=== PATIENT | male | born 1950 | race Caucasian/White ===

== ENCOUNTER 2022-12-21 16:20 | Emergency (ER) | payer OTHER, SELFPAY ==
--- NOTE | 2022-12-21 16:25 | PC.NURSE ---
pt called from waiting area within 5 min of arrival and is in bathroom.
[2022-12-21 16:33] VITALS: BP 146/72; PULSE 80; RESP 16; TEMP 36; O2SAT 98; BMI 36.2
--- NOTE | 2022-12-21 16:37 | DI.RAD.S_ITS ---
PROCEDURE: XR CHEST 1V INDICATIONS: chest pain TECHNIQUE: One view of the chest was acquired. COMPARISON: None. FINDINGS: Surgical changes and devices: None. Lungs and pleura: Lungs are clear. No pleural effusions or pneumothorax. Mediastinum: Mediastinal contours appear normal. Heart size is normal. Bones and chest wall: No suspicious bony lesions. Overlying soft tissues appear unremarkable. IMPRESSION: Portable chest within normal limits for age. Dictated by: Rosey Phoenix M.D. on 12/21/2022 at 17:07 Approved by: Rosey Phoenix M.D. on 12/21/2022 at 17:07
[2022-12-21 17:27] LABS: Add Manual Diff / Slide Review NO; Basophils Absolute Auto 100 /uL (0-100); Basophils Percent Auto 1.3 % (0-2); Eosinophils Absolute Auto 200 /uL (0-450); Eosinophils Percent Auto 3.5 % (2-4); Hematocrit 44.5 % (41-53); Hemoglobin 15.1 g/dL (13.5-17.5); Lymphocytes Absolute Auto 1200 /uL (1100-4500); Lymphocytes Percent Auto 20.7 % (25-40); Mean Corpuscular HGB Conc 33.9 % (30-36); Mean Corpuscular Hemoglobin 30.9 PG (26-34); Mean Corpuscular Volume 91.2 fL (80-100); Monocytes Absolute Auto 600 /uL (0-900); Monocytes Percent Auto 10.6 % (3-14); Neutrophils Absolute Auto 3800 /uL (1500-7000); Neutrophils Percent Auto 63.9 % (50-75); Platelet Count 187 X10^3/uL (150-400); Red Blood Cell Count 4.87 X10^6/uL (4.5-5.9); Red Cell Distribution Width 13.9 % (11.6-14.8); White Blood Cell Count 5.9 X10^3/uL (4.5-11.0)
[2022-12-21 17:34] LABS: Alanine Aminotransferase 39 IU/L (<50); Albumin 4.5 g/dL (3.5-5.0); Albumin Globulin Ratio 1.4 (1.0-2.8); Alkaline Phosphatase 66 U/L (38-126); Aspartate Aminotransferase 39 IU/L (17-59); Bilirubin Total 0.5 mg/dL (0.2-1.3); Blood Urea Nitrogen 13 mg/dL (9-20); Calcium 9.4 mg/dL (8.4-10.2); Carbon Dioxide 28 mmol/L (22-32); Chloride 104 mmol/L (98-107); Creatine Kinase 155 U/L (55-170); Estimated Glomerular Filt Rate > 60 mL/min (>60); Globulin 3.3 g/dL (1.7-4.1); Glucose 95 mg/dL (80-110); HEMOLYSIS 45 (0-50); Lipase 44 U/L (23-300); Potassium 4.2 mmol/L (3.4-5.1); Sodium 140 mmol/L (137-145); Total Protein 7.8 g/dL (6.3-8.2)
[2022-12-21 17:45] LABS: Troponin I < 0.012 ng/mL (0.01-0.034)
--- NOTE | 2022-12-21 18:04 | ED.CHESTPAIN ---
HPI - Chest Pain General Chief Complaint: Chest Pain Stated Complaint: Weird sensation in chest upon standing Time Seen by Provider: 12/21/22 18:02 History of Present Illness HPI narrative: 72-year-old male nonsmoker, nondrinker with history of hypertension and hyperlipidemia presents at the request of the call nurse for his insurance company. He states that he had felt great, very nonspecific about it over the past week or so and on Saturday he had bent over to adjust his vacuum cleaner assistant and upon standing felt some palpitations that resolved without any specific intervention. He denies associated symptoms such as dizziness, weakness or lightheadedness. No shortness of breath, nausea, vomiting or unexplained diaphoresis. No pain pressure or heaviness. No exertional symptoms and no exercise intolerance. He is had no change in medications or diet. He denies any recent travel, change sleep habits or other. He states he had 1 or 2 other brief episodes of palpitations only that were without obvious provocation or palliation. Related Data Allergies Allergy/AdvReac Type Severity Reaction Status Date / Time No Known Drug Allergies Allergy Verified 12/21/22 19:04 Review of Systems Review of Systems Narrative: GENERAL: Denies chills, fatigue, malaise, fever, sweats. HEENT: Denies sinus pain, ear pain, sore throat, difficulty swallowing, dizziness. RESPIRATORY: Denies dyspnea, cough, wheezing, hemoptysis, sputum. CARDIOVASCULAR: See HPI GASTROINTESTINAL: Denies nausea, vomiting, abdominal pain, diarrhea, constipation, melena. : Denies dysuria, frequency, incontinence, hematuria, urinary retention. MUSCULOSKELETAL: denies weakness, joint pain, or bony pain SKIN: Denies rash, skin lesions, or other NEUROLOGIC: Denies weakness, headache, numbness, change in speech, confusion, seizures, incoordination. PSYCHIATRIC: No concerning psychosocial issues. 12 point review of systems is negative except for those stated above Exam Narrative Exam Narrative: GENERAL: [72] year old patient appears stated age. Well-developed patient, in mild distress. HEAD: Atraumatic. Normocephalic. EYES: Pupils equal round and reactive. Extraocular motions intact. No scleral icterus. No injection or drainage. ENT: Nose without bleeding, purulent drainage. Throat without erythema, tonsillar hypertrophy or exudate. Airway patent. NECK: Trachea midline. Non tender CARDIOVASCULAR: Regular rate and rhythm without murmurs, gallops, or rubs. RESPIRATORY: Clear to auscultation. Breath sounds equal bilaterally. No wheezes, rales, or rhonchi. GASTROINTESTINAL: Abdomen soft, non-tender, nondistended. EXTREMITIES: No edema or joint tenderness. BACK: Nontender without deformity or crepitance. No flank tenderness. NEURO: AOx3. SKIN: No rash or erythema of visible areas Initial Vital Signs Initial Vital Signs: Vital Signs Temperature 96.8 F L 12/21/22 16:33 Pulse Rate 80 12/21/22 16:33 Respiratory Rate 16 12/21/22 16:33 Blood Pressure 146/72 H 12/21/22 16:33 Pulse Oximetry 98 12/21/22 16:33 Oxygen Delivery Method Room Air 12/21/22 16:33 Course Orders Ordered: ED Orders 12/21/22 16:36 EKG-12 Lead Stat 12/21/22 16:37 XR chest 1V Stat 12/21/22 17:00 Complete Blood Count AUTO DIFF Stat Comprehensive Metabolic Panel Stat D Dimer Stat Lipase Stat Magnesium Stat Troponin & CK Cardiac Panel Stat 12/21/22 18:01 PTT Partial Thromboplastin Jerry Stat Prothrombin Time INR Stat 12/21/22 18:36 EKG-12 Lead Stat 12/21/22 18:40 Troponin & CK Cardiac Panel Stat Discontinued Medications Aspirin (Aspirin 81 Mg Chew Tab) 324 mg PO NOW ONE Stop: 12/21/22 16:38 Last Admin: 12/21/22 18:48 Dose: Not Given Documented By: SPF Vital Signs Vital signs: Vital Signs - 8 hr 12/21/22 16:33 12/21/22 18:46 12/21/22 18:46 Temperature 96.8 F L Pulse Rate 80 64 Respiratory Rate 16 20 Blood Pressure 146/72 H 144/73 H Pulse Oximetry 98 98 Oxygen Delivery Method Room Air 12/21/22 19:00 12/21/22 19:00 Temperature Pulse Rate 62 Respiratory Rate 13 Blood Pressure 136/72 Pulse Oximetry 95 Oxygen Delivery Method Room Air MDM - Chest Pain Lab Data 12/21/22 17:00 12/21/22 17:00 Labs: Lab Results 12/21/22 12/21/22 12/21/22 Range/Units 17:00 17:00 17:00 WBC 5.9 (4.5-11.0) X10^3/uL RBC 4.87 (4.5-5.9) X10^6/uL Hgb 15.1 (13.5-17.5) g/dL Hct 44.5 (41-53) % MCV 91.2 (80-100) fL MCH 30.9 (26-34) PG MCHC 33.9 (30-36) % RDW 13.9 (11.6-14.8) % Plt Count 187 (150-400) X10^3/uL Neut % (Auto) 63.9 (50-75) % Lymph % (Auto) 20.7 L (25-40) % Davison % (Auto) 10.6 (3-14) % Eos % (Auto) 3.5 (2-4) % Baso % (Auto) 1.3 (0-2) % Neut # (Auto) 3800 (2352-9677) /uL Lymph # (Auto) 1200 (3052-8189) /uL Davison # (Auto) 600 (0-900) /uL Eos # (Auto) 200 (0-450) /uL Baso # (Auto) 100 (0-100) /uL PT (10.1-12.7) SECONDS INR (0.9-1.3) APTT (26-36) SECONDS D-Dimer 409 (<500) ng/ml Sodium 140 (137-145) mmol/L Potassium 4.2 (3.4-5.1) mmol/L Chloride 104 (98-107) mmol/L Carbon Dioxide 28 (22-32) mmol/L BUN 13 (9-20) mg/dL Creatinine 0.93 (0.66-1.25) mg/dL Estimated GFR > 60 (>60) mL/min BUN/Creatinine Ratio 14.0 (6-22) Glucose 95 (80-110) mg/dL Calcium 9.4 (8.4-10.2) mg/dL Magnesium 2.0 (1.6-2.3) mg/dL Total Bilirubin 0.5 (0.2-1.3) mg/dL AST 39 (17-59) IU/L ALT 39 (<50) IU/L Alkaline Phosphatase 66 (38-126) U/L Total Creatine Kinase 155 (55-170) U/L Troponin I < 0.012 (0.01-0.034) ng/mL Total Protein 7.8 (6.3-8.2) g/dL Albumin 4.5 (3.5-5.0) g/dL Globulin 3.3 (1.7-4.1) g/dL Albumin/Globulin Ratio 1.4 (1.0-2.8) Lipase 44 (23-300) U/L 12/21/22 12/21/22 Range/Units 18:01 18:40 WBC (4.5-11.0) X10^3/uL RBC (4.5-5.9) X10^6/uL Hgb (13.5-17.5) g/dL Hct (41-53) % MCV (80-100) fL MCH (26-34) PG MCHC (30-36) % RDW (11.6-14.8) % Plt Count (150-400) X10^3/uL Neut % (Auto) (50-75) % Lymph % (Auto) (25-40) % Davison % (Auto) (3-14) % Eos % (Auto) (2-4) % Baso % (Auto) (0-2) % Neut # (Auto) (1598-8651) /uL Lymph # (Auto) (3365-6675) /uL Davison # (Auto) (0-900) /uL Eos # (Auto) (0-450) /uL Baso # (Auto) (0-100) /uL PT 11.6 (10.1-12.7) SECONDS INR 1.0 (0.9-1.3) APTT 33 (26-36) SECONDS D-Dimer (<500) ng/ml Sodium (137-145) mmol/L Potassium (3.4-5.1) mmol/L Chloride (98-107) mmol/L Carbon Dioxide (22-32) mmol/L BUN (9-20) mg/dL Creatinine (0.66-1.25) mg/dL Estimated GFR (>60) mL/min BUN/Creatinine Ratio (6-22) Glucose (80-110) mg/dL Calcium (8.4-10.2) mg/dL Magnesium (1.6-2.3) mg/dL Total Bilirubin (0.2-1.3) mg/dL AST (17-59) IU/L ALT (<50) IU/L Alkaline Phosphatase (38-126) U/L Total Creatine Kinase 151 (55-170) U/L Troponin I < 0.012 (0.01-0.034) ng/mL Total Protein (6.3-8.2) g/dL Albumin (3.5-5.0) g/dL Globulin (1.7-4.1) g/dL Albumin/Globulin Ratio (1.0-2.8) Lipase (23-300) U/L MDM Narrative Medical decision making narrative: [72] year old patient presents with brief episodes of palpitations without provocation Multiple etiologies for patient's symptoms considered including, but not limited to: [Cardiac ischemia versus pulmonary embolism versus electrolyte abnormality versus dehydration versus other] Prior Charts reviewed in our EMR Primary Historian: patient Labs reviewed and interpreted by myself: No leukocytosis or left shift, no signs of anemia, D-dimer below age corrected cutoff, primary electrolytes, renal function and troponin x2 negative Imaging reviewed: Chest x-ray demonstrates no evidence of acute process Patient's history and physical exam are very reassuring. Multiple diagnoses considered as noted above. Cardiac ischemia thought unlikely given lack of exertional symptoms or cardiac equivalent, nonischemic EKG and troponin negative x2. Pulmonary embolism considered but thought unlikely given D-dimer below age corrected cutoff, algorithm suggest against the pursuit of this diagnosis with advanced imaging. No signs of dehydration or electrolyte abnormality. At this time patient is very stable and asymptomatic, he is had a very reassuring workup and at this point there is no indication for intervention or hospitalization. He is appropriate for discharge and follow up with his primary care provider Findings and discharge diagnosis discussed with patient/family followed by verbalization of understanding Return precautions discussed with patient/family whom verbalize understanding of diagnosis and plan Discharge Plan Departure Patient Disposition: Home Clinical Impression: Heart palpitations Instructions: DI for Palpitations Activity Restrictions/Additional Instructions: *You have been diagnosed with [palpitations] *What to do: *Please continue to take your regular medications as directed. [ ] New medication prescriptions sent to your pharmacy: [ ] [ ] New medication written as a paper prescription [ ] No new medications given *Please follow up with your primary care provider in 2-3 days, call for an appointment. Let them know you were seen in the Emergency Department and that we ask that you be seen in follow up. We will electronically transmit a record of today's note if your PCP is in our system *If you do not have a primary care provider please contact the [facility] Resource line at [phone]. They will ask some questions about your medical history and help get you set up with a doctor in the community. *Return to Emergency Department if you should have any new, worsening or concerning symptoms, such as [fever greater than 101 F, shaking chills, worsening pain, persistent vomiting or other bothersome symptoms] Stand Alone Forms: Patient Portal/API
[2022-12-21 18:46] VITALS: BP 144/73; PULSE 64; RESP 20; O2SAT 98
[2022-12-21 18:57] LABS: D Dimer 409 ng/ml (<500)
[2022-12-21 18:59] LABS: PTT Partial Thromboplastin Tim 33 SECONDS (26-36); Prothrombin Time 11.6 SECONDS (10.1-12.7)
[2022-12-21 19:00] VITALS: BP 136/72; PULSE 62; RESP 13; O2SAT 95
--- NOTE | 2022-12-21 19:09 | PC.NURSE ---
Pt reports feeling a sensation of tingling, like palptations on Saturday 5 days ago while cleaning around the house. Since then patient expresses generalized feeling of fatigue, like he has no [id number] and feeling crumby. Pt denies SOB, chest pain, dizziness or lightheaded, nausea. He just felt the need to get checked out.
[2022-12-21 19:11] LABS: Creatine Kinase 151 U/L (55-170)
[2022-12-21 19:24] LABS: Troponin I < 0.012 ng/mL (0.01-0.034)
== END 2022-12-21 19:47 | disposition home or self-care (01) ==
PROVIDERS: Emergency Medicine; Emergency Provider Emergency Medicine
DX: R00.2 Palpitations (principal); R07.9 Chest pain, unspecified
CPT/HCPCS: 36415; 71045; 80053; 82550; 83690; 83735; 84484; 85025; 85379; 85610; 85730; 93005; 99284